=== PATIENT | male | born 1980 | race Two or more races ===

== ENCOUNTER 2018-09-18 12:39 | Emergency (ER) | payer MEDICAID, OTHER ==
[~2018-09-18] VITALS: Ht 177.8 cm; Wt 84.1 kg
[2018-09-18 12:53] VITALS: BP 118/74
[2018-09-18] MEDS ORDERED: ibuprofen tablet 400 MG TABLET PO ONE (14:20)
[2018-09-18] MEDS ORDERED: BISA-155 PO (14:21)
[2018-09-18] MEDS ORDERED: IBUP-1984 PO (14:23)
== END 2018-09-18 13:49 | disposition home or self-care (01) ==
LOC: ER 12:40
DX: S00.33XA Contusion of nose, initial encounter (principal); R55 Syncope and collapse; Z88.8 Allergy status to other drugs, medicaments and biological substances; Z79.899 Other long term (current) drug therapy; W01.0XXA Fall on same level from slipping, tripping and stumbling without subsequent striking against object, initial encounter; Y93.89 Activity, other specified; Y92.89 Other specified places as the place of occurrence of the external cause; Y99.8 Other external cause status
CPT/HCPCS: 93005; 99283